=== PATIENT | female | born 1965 | race Caucasian/White ===

== ENCOUNTER 2022-07-02 09:30 | Inpatient (IN) | payer OTHER ==
[~2022-07-02] VITALS: Ht 157.5 cm; Wt 54.4 kg
[2022-07-02] MEDS ORDERED: METHOTREXATE2.5 MG PO (11:48)
[2022-07-02] MEDS ORDERED: ZIPSOR25 MG PO (11:48)
[2022-07-02] MEDS ORDERED: SYNTHROID150 MCG PO (11:48)
[2022-07-02] MEDS ORDERED: FOLIC ACID0.8 M1 PO (11:49)
[2022-07-02] MEDS ORDERED: D3 + K2 DOTS 11 EACH PO (11:49)
[2022-07-02] MEDS ORDERED: INTEGRA CAPSUL1 EACH PO (11:49)
[2022-07-04] MEDS ORDERED: FOLIC ACID1 MG (10:20)
[2022-07-05] MEDS ORDERED: XARELTO10 MG PO (12:53)
[2022-07-05] MEDS ORDERED: NORFLEX100MG PO (12:53)
[2022-07-05] MEDS ORDERED: OXYC1TAB9 PO (12:53)
[2022-07-05] MEDS ORDERED: GABAPENTIN100 MG PO (12:53)
== END 2022-07-05 18:10 | DRG 470 ==
LOC: O/R 07-03 05:42 → SURG 07-03 05:42 → SURH 07-03 09:45 → SURG 07-03 14:09
PROVIDERS: ADMIT Orthopaedic Surgery; ATTEND Orthopaedic Surgery
PROC: 0SRD0JZ Replacement of Left Knee Joint with Synthetic Substitute, Open Approach (ICD-10-PCS; principal; 2022-07-03 11:30)
DX: M17.12 Unilateral primary osteoarthritis, left knee (principal); D62 Acute posthemorrhagic anemia; M85.662 Other cyst of bone, left lower leg; R26.89 Other abnormalities of gait and mobility; M65.862 Other synovitis and tenosynovitis, left lower leg; M06.862 Other specified rheumatoid arthritis, left knee; E03.9 Hypothyroidism, unspecified